=== PATIENT | female | born 1940 | race Caucasian/White ===

== ENCOUNTER → 2018-07-18 | Outpatient (CLI) | payer MEDICARE ==
[~2018-07-18] MED LIST: ASPI-515 PO; BENA40TA3 PO; CELE200C PO; DOCU-131 PO; ESCI10TA PO; GABA-827 PO; METH20TA5 PO; METO-99 PO; ONDA4TAB10 PO; OXYC5TAB3 PO; ROPI1TAB2 PO; SIMV20TA3 PO; TRAM50TA2 PO
[2018-07-18 12:54] LABS: BASOPHILS # (AUTO) 0.03 x10^3/uL (0-0.1); BASOPHILS % (AUTO) 0 % (0-1); EOSINOPHILS # (AUTO) 0.89 x10^3/uL (0-0.4); EOSINOPHILS % (AUTO) 11 % (1-7); HCT (SEDRATE) 42.5 % (34.6-47.8); LYMPHOCYTES # (AUTO) 2.25 x10^3/uL (1-3.4); LYMPHOCYTES % (AUTO) 28 % (22-44); MD NO; MEAN CORPUSCULAR HEMOGLOBIN 30.3 pg (27.0-34.8); MEAN CORPUSCULAR HGB CONC 33.3 g/dL (32.4-35.8); MEAN CORPUSCULAR VOLUME 91.2 fL (80-100); MEAN PLATELET VOLUME 7.7 fL (7.4-10.4); MONOCYTES # (AUTO) 0.42 x10^3/uL (0.2-0.8); MONOCYTES % (AUTO) 5 % (2-9); NEUTROPHILS # (AUTO) 4.37 x10^3/uL (1.8-6.8); NEUTROPHILS % (AUTO) 55 % (42-75); PLATELET COUNT 212 x10^3/uL (130-400); RED BLOOD COUNT 4.74 x10^6/uL (3.82-5.3); RED CELL DISTRIBUTION WIDTH 13.5 % (9.6-15.2)
[2018-07-18 12:56] LABS: MICROSCOPIC NOT IND
[2018-07-18 13:00] LABS: CULTURE INDICATED? NO
[2018-07-18 13:00] LABS: INTERNATIONAL NORMALIZED RATIO 0.99 (0.93-1.1); PROTHROMBIN TIME 10.2 Seconds (9.6-11.5)
[2018-07-18 13:02] LABS: ANION GAP 9 mmol/L (5-15); CALCIUM 8.9 mg/dL (8.5-10.1); CHLORIDE 100 mmol/L (98-107)
[2018-07-18 13:06] LABS: HEMOGLOBIN A1C 5.9 % (4.2-6.3)
[2018-07-18 13:10] LABS: ALANINE AMINOTRANSFERASE 16 U/L (12-78); ALBUMIN 3.8 g/dL (3.4-5.0); ALKALINE PHOSPHATASE 83 U/L (45-117); BILIRUBIN,TOTAL 0.6 mg/dL (0.2-1.0); CREATININE 0.96 mg/dL (0.55-1.02); TOTAL PROTEIN 7.8 g/dL (6.4-8.2)
== END | disposition home or self-care (01) ==
LOC: STAR 11:06
PROVIDERS: ATTEND Orthopaedic Surgery
DX: Z01.818 Encounter for other preprocedural examination (principal); T84.84XS Pain due to internal orthopedic prosthetic devices, implants and grafts, sequela
CPT/HCPCS: 36415; 80053; 81003; 83036; 85025; 85610; 85651; 85730; 86140; 87081; 87806; 93005; G0475

== ENCOUNTER 2018-07-23 10:22 | Inpatient (IN) | payer MEDICARE ==
[~2018-07-23] VITALS: Ht 168.9 cm; Wt 58.5 kg
[~2018-07-23 10:22] MED LIST changes: -ASPI-515 PO; -CELE200C PO; -DOCU-131 PO; +EPINEPHRINE 1 MG/ML, 1ML ONE; +KETOROLAC 60 MG/2 ML ONE; -ONDA4TAB10 PO; -OXYC5TAB3 PO; +ROPIvacaine/PF 0.2%, 20 ML ONE; +TRANEXAMIC ACID 100 MG/ML, 10ML ONE
[2018-07-23] MEDS ORDERED: LACTATED RINGERS 1,000 ML IV SCH (10:47)
[2018-07-23] MEDS ORDERED: ACETAMINOPHEN 500 MG TABLET PO ONE (11:00)
[2018-07-23] MEDS ORDERED: VANCOMYCIN PER PHARMACY MC PRN (11:00)
[2018-07-23] MEDS ORDERED: GABAPENTIN 300 MG CAPSULE PO ONE (11:00)
[2018-07-23 11:11] VITALS: BP 162/88
[2018-07-23] MEDS ORDERED: FENTANYL PF 250 MCG/5ML ONE (11:26)
[2018-07-23] MEDS ORDERED: VANCOMYCIN PMX 1GM/200ML 200 ML IV ONE (11:30)
[2018-07-23] MEDS ORDERED: TRANEXAMIC ACID 100 MG/ML, 10ML ONE (11:39)
[2018-07-23] MEDS ORDERED: ROPIvacaine/PF 0.2%, 20 ML ONE (11:39)
[2018-07-23] MEDS ORDERED: LIDOCAINE-MPF 2% ,5ML ONE (12:30)
[2018-07-23] MEDS ORDERED: LIDOCAINE 4%, 4 ML SYR/CANN TP ONE (12:30)
[2018-07-23] MEDS ORDERED: PROPOFOL 10 MG/ML, 20ML ONE (12:30)
[2018-07-23] MEDS ORDERED: SUCCINYLCHOLINE 20 MG/ML, 10ML ONE (12:30)
[2018-07-23] MEDS ORDERED: SUGAMMADEX 200 MG/2 ML IVPush ONE (12:30)
[2018-07-23] MEDS ORDERED: EPHEDRINE 50 MG/ML, 1ML ONE (12:30)
[2018-07-23] MEDS ORDERED: ROCURONIUM 10 MG/ML,10ML ONE (12:30)
[2018-07-23] MEDS ORDERED: ONDANSETRON ODT 8 MG PO PRN (13:30)
[2018-07-23] MEDS ORDERED: DIAZEPAM 5 MG/ML, 2ML IVPush PRN (13:30)
[2018-07-23] MEDS ORDERED: FENTANYL PF 100 MCG/2ML IV PRN (13:30)
[2018-07-23] MEDS ORDERED: OXYcodone 5 MG/5 ML ORAL.SOL UDC PO PRN (13:30)
[2018-07-23] MEDS ORDERED: MORPHINE SULFATE 4 MG/ML, 1ML IVPush PRN (13:30)
[2018-07-23] MEDS ORDERED: MEPERIDINE/PF 25MG/0.5ML IVPush PRN (13:30)
[2018-07-23] MEDS ORDERED: ACETAMINOPHEN 325 MG TABLET PO PRN (13:30)
[2018-07-23] MEDS ORDERED: ONDANSETRON 2MG/ML, 2ML IV PRN ×2 (13:30→14:00)
[2018-07-23] MEDS ORDERED: PROCHLORPERAZINE 5 MG/ML, 2ML IM PRN (13:30)
[2018-07-23 13:42] LABS: CELLS COUNTED 16
[2018-07-23] MEDS ORDERED: TRANEXAMIC ACID 1,000 MG in SODIUM CHLORIDE 0.9% 100 ML IVPB ONE (14:00)
[2018-07-23] MEDS ORDERED: SENNA/DOCUSATE TABLET PO PRN (14:00)
[2018-07-23] MEDS ORDERED: DIPHENHYDRAMINE 50 MG CAPSULE PO PRN (14:00)
[2018-07-23] MEDS ORDERED: ONDANSETRON 4 MG TABLET PO PRN (14:00)
[2018-07-23] MEDS ORDERED: HYDROmorphone 1 MG/ML, 1ML IV PRN (14:00)
[2018-07-23] MEDS ORDERED: ALUMINUM/MAG/SIMETHICONE 30 ML UDC PO PRN (14:00)
[2018-07-23] MEDS ORDERED: PROMETHAZINE 12.5 MG SUPP PR PRN (14:00)
[2018-07-23] MEDS ORDERED: MAGNESIUM HYDROXIDE 8%, 30ML UDC PO PRN (14:00)
[2018-07-23] MEDS ORDERED: PROMETHAZINE 25 MG/ML, 1ML IM PRN (14:00)
[2018-07-23] MEDS ORDERED: ACETAMINOPHEN 650 MG/20.3 ML UDC PO PRN (14:00)
[2018-07-23] MEDS ORDERED: OXYcodone IR 5MG TABLET PO PRN (14:00)
[2018-07-23] MEDS ORDERED: FENTANYL PF 100 MCG/2ML ONE (14:10)
[2018-07-23] MEDS ORDERED: OXYcodone 5 MG/5 ML ORAL.SOL UDC ONE ×2 (14:10→14:46)
[2018-07-23] MEDS ORDERED: ACETAMINOPHEN 650 MG/20.3 ML UDC ONE (14:10)
[2018-07-23] MEDS ORDERED: HYDROmorphone 2 MG/ML, 1ML ONE (14:23)
[2018-07-23] MEDS: HYDROmorphone 1 MG/ML, 1ML IV PRN ×3 (14:31→15:20)
[2018-07-23] MEDS ORDERED: ONDANSETRON 2MG/ML, 2ML ONE (15:18)
[2018-07-23 16:00] VITALS: BP 132/70
[2018-07-23] MEDS: ASPIRIN 81 MG TABLET EC PO SCH (17:30)
[2018-07-23] MEDS: D5%-0.45NACL+KCL 20MEQ 1,000 ML IV SCH (17:30)
[2018-07-23 20:30] VITALS: BP 100/55
[2018-07-23] MEDS: ROPINIROLE 1MG TABLET PO SCH (20:59)
[2018-07-23] MEDS: CEFAZOLIN PMX 1GM/50ML 50 ML IVPB SCH (20:59)
[2018-07-23] MEDS: DOCUSATE 100 MG CAPSULE PO SCH (20:59)
[2018-07-23] MEDS ORDERED: SIMVASTATIN 20 MG TABLET PO SCH (21:00)
[2018-07-24 00:05] VITALS: BP 117/68
[2018-07-24] MEDS: GABAPENTIN 400 MG CAPSULE PO SCH ×2 (00:22→10:14)
[2018-07-24 04:05] VITALS: BP 108/61
[2018-07-24] MEDS: ASPIRIN 81 MG TABLET EC PO SCH (04:57)
[2018-07-24] MEDS ORDERED: CEFAZOLIN PMX 1GM/50ML 50 ML ONE (04:59)
[2018-07-24] MEDS: D5%-0.45NACL+KCL 20MEQ 1,000 ML IV SCH (05:00)
[2018-07-24] MEDS: CEFAZOLIN PMX 1GM/50ML 50 ML IVPB SCH (05:00)
[2018-07-24] MEDS ORDERED: DEXAMETHASONE 4 MG/ML, 1ML IVPush SCH (06:00)
[2018-07-24 07:30] VITALS: BP 114/68
[2018-07-24] MEDS ORDERED: ASPI-515 PO (08:14)
[2018-07-24] MEDS ORDERED: ONDA4TAB10 PO (08:15)
[2018-07-24] MEDS ORDERED: DOCU-131 PO (08:16)
[2018-07-24] MEDS ORDERED: CELE200C PO (08:17)
[2018-07-24] MEDS ORDERED: TRAM50TA2 PO (08:18)
[2018-07-24] MEDS ORDERED: OXYC5TAB3 PO (08:19)
[2018-07-24] MEDS ORDERED: KETOROLAC 30 MG/1 ML ONE (08:45)
[2018-07-24] MEDS ORDERED: BENAZEPRIL 20 MG TABLET PO SCH (09:00)
[2018-07-24] MEDS ORDERED: METOPROLOL TARTRATE 100 MG TABLET PO SCH (09:00)
[2018-07-24] MEDS ORDERED: CITALOPRAM 20 MG TABLET PO SCH (09:00)
[2018-07-24 10:02] VITALS: BP 120/63
[2018-07-24] MEDS: ROPINIROLE 1MG TABLET PO SCH (10:14)
[2018-07-24] MEDS: DOCUSATE 100 MG CAPSULE PO SCH (10:15)
[2018-07-24] MEDS ORDERED: GABAPENTIN 400 MG CAPSULE PO SCH (12:00)
[2018-07-24 12:52] VITALS: BP 145/75
[2018-07-24] MEDS ORDERED: KETOROLAC 30 MG/1 ML IV SCH (14:00)
== END 2018-07-24 13:47 | disposition home or self-care (01) | DRG 466 ==
LOC: ORIP 10:22 → 4NOR 16:00 → DCLOUNGE 07-24 13:10
PROVIDERS: ADMIT Orthopaedic Surgery; ATTEND Orthopaedic Surgery
PROC: 0SP90JZ Removal of Synthetic Substitute from Right Hip Joint, Open Approach (ICD-10-PCS; 2018-07-23)
PROC: 0SR901Z Replacement of Right Hip Joint with Metal Synthetic Substitute, Open Approach (ICD-10-PCS; principal; 2018-07-23 12:30)
DX: T84.090A Other mechanical complication of internal right hip prosthesis, initial encounter (principal); J96.01 Acute respiratory failure with hypoxia; Y79.2 Prosthetic and other implants, materials and accessory orthopedic devices associated with adverse incidents; Z96.649 Presence of unspecified artificial hip joint; J44.9 Chronic obstructive pulmonary disease, unspecified; I10 Essential (primary) hypertension; G47.30 Sleep apnea, unspecified; Z88.8 Allergy status to other drugs, medicaments and biological substances; I25.2 Old myocardial infarction; Z95.5 Presence of coronary angioplasty implant and graft; Z99.81 Dependence on supplemental oxygen
CPT/HCPCS: 36415; 85014; 85018; 86850; 86900; 89051; C1713; G0378; J0171; J0690; J1100; J1170; J1885; J2405; J2704; J2795; J3010; J3370; J3490; C1776; J0330; J3480; J7120

== ENCOUNTER 2018-11-09 07:01 | Inpatient (IN) | payer MEDICARE ==
[~2018-11-09] VITALS: Ht 167.6 cm; Wt 54.4 kg
[~2018-11-09 07:01] MED LIST changes: +ASPI-515 PO; +CELE200C PO; +DOCU-131 PO; -EPINEPHRINE 1 MG/ML, 1ML ONE; +HYDR-3343 PO; -KETOROLAC 60 MG/2 ML ONE; +METO-95 PO; +ONDA4TAB10 PO; +OXYC5TAB3 PO; -ROPIvacaine/PF 0.2%, 20 ML ONE; -TRANEXAMIC ACID 100 MG/ML, 10ML ONE
[2018-11-09] MEDS ORDERED: VANCOMYCIN PER PHARMACY MC STA (07:29)
[2018-11-09] MEDS ORDERED: LACTATED RINGERS 1,000 ML IV SCH (07:35)
[2018-11-09] MEDS ORDERED: ACETAMINOPHEN 500 MG TABLET PO ONE (08:00)
[2018-11-09] MEDS ORDERED: GABAPENTIN 300 MG CAPSULE PO ONE (08:00)
[2018-11-09] MEDS ORDERED: ROPIvacaine/PF 0.2%, 20 ML ONE (08:30)
[2018-11-09] MEDS ORDERED: VANCOMYCIN PMX 1GM/200ML 200 ML IV ONE (08:30)
[2018-11-09] MEDS ORDERED: KETOROLAC 60 MG/2 ML ONE (08:30)
[2018-11-09] MEDS ORDERED: TRANEXAMIC ACID 100 MG/ML, 10ML ONE ×7 (08:30→09:52)
[2018-11-09] MEDS ORDERED: EPINEPHRINE 1 MG/ML, 1ML ONE (08:31)
[2018-11-09 08:33] VITALS: BP 125/79
[2018-11-09] MEDS ORDERED: FENTANYL PF 100 MCG/2ML ONE ×2 (08:43→10:54)
[2018-11-09] MEDS ORDERED: MIDAZOLAM 1 MG/ML, 2ML ONE (08:43)
[2018-11-09] MEDS ORDERED: METO-99 PO (08:46)
[2018-11-09] MEDS ORDERED: TRAM50TA2 PO (08:54)
[2018-11-09] MEDS ORDERED: METOCLOPRAMIDE 5 MG/ML, 2ML IV PRN (09:00)
[2018-11-09] MEDS ORDERED: OXYcodone 5 MG/5 ML ORAL.SOL UDC PO PRN (09:00)
[2018-11-09] MEDS ORDERED: MEPERIDINE/PF 25MG/0.5ML IVPush PRN (09:00)
[2018-11-09] MEDS ORDERED: CEFAZOLIN 1,000 MG ONE (09:12)
[2018-11-09] MEDS ORDERED: hydrALAzine 20 MG/ML, 1ML ONE ×2 (09:12→10:29)
[2018-11-09] MEDS ORDERED: PROPOFOL 10 MG/ML, 20ML ONE (09:12)
[2018-11-09] MEDS ORDERED: DEXAMETHASONE 4 MG/ML, 1ML ONE (09:12)
[2018-11-09] MEDS ORDERED: ROCURONIUM 10 MG/ML,10ML ONE (09:12)
[2018-11-09] MEDS ORDERED: ONDANSETRON 2MG/ML, 2ML ONE (09:12)
[2018-11-09] MEDS ORDERED: D5%-0.45% NACL 1,000 ML IV SCH (10:42)
[2018-11-09] MEDS: HYDROmorphone 2 MG/ML, 1ML IVPush PRN ×4 (10:50→11:45)
[2018-11-09] MEDS ORDERED: HYDROmorphone 2 MG/ML, 1ML ONE (10:50)
[2018-11-09] MEDS: FENTANYL PF 100 MCG/2ML IV PRN ×2 (10:55→11:10)
[2018-11-09] MEDS ORDERED: ONDANSETRON 4 MG TABLET PO PRN (11:00)
[2018-11-09] MEDS ORDERED: PROMETHAZINE 12.5 MG SUPP PR PRN (11:00)
[2018-11-09] MEDS ORDERED: LORazepam 1MG TABLET PO PRN (11:00)
[2018-11-09] MEDS ORDERED: DIPHENHYDRAMINE 25 MG CAPSULE PO PRN (11:00)
[2018-11-09] MEDS ORDERED: ZOLPIDEM 5MG TABLET PO PRN (11:00)
[2018-11-09] MEDS ORDERED: hydrALAzine 20 MG/ML, 1ML IV PRN (11:00)
[2018-11-09] MEDS ORDERED: HYDROmorphone 1 MG/ML, 1ML IV PRN (11:00)
[2018-11-09] MEDS ORDERED: SCOPOLAMINE PATCH, 1.5MG PATCH.TD72 TD PRN (11:00)
[2018-11-09] MEDS ORDERED: SENNA/DOCUSATE TABLET PO PRN (11:00)
[2018-11-09] MEDS ORDERED: ACETAMINOPHEN 650 MG/20.3 ML UDC PO PRN (11:00)
[2018-11-09] MEDS ORDERED: ALUMINUM/MAG/SIMETHICONE 30 ML UDC PO PRN (11:00)
[2018-11-09] MEDS ORDERED: BISACODYL 10 MG SUPP PR PRN (11:00)
[2018-11-09] MEDS ORDERED: HYDROcodone/APAP 5/325 TABLET PO PRN (11:00)
[2018-11-09] MEDS ORDERED: MAGNESIUM HYDROXIDE 8%, 30ML UDC PO PRN (11:00)
[2018-11-09] MEDS ORDERED: DIAZEPAM 5 MG TABLET PO PRN (11:00)
[2018-11-09] MEDS ORDERED: PROMETHAZINE 25 MG/ML, 1ML IM PRN (11:00)
[2018-11-09] MEDS ORDERED: ONDANSETRON 2MG/ML, 2ML IV PRN (11:00)
[2018-11-09] MEDS ORDERED: OXYcodone IR 5MG TABLET PO PRN (11:00)
[2018-11-09] MEDS ORDERED: TRANEXAMIC ACID 1,000 MG in SODIUM CHLORIDE 0.9% 100 ML IVPB ONE (12:00)
[2018-11-09] MEDS: GABAPENTIN 400 MG CAPSULE PO SCH ×2 (12:00→13:13)
[2018-11-09] MEDS ORDERED: HYDROmorphone 2 MG/ML, 1ML IV PRN (13:00)
[2018-11-09 14:25] VITALS: BP 89/47
[2018-11-09] MEDS: CEFAZOLIN PMX 2GM/50ML 50 ML IVPB SCH (17:05)
[2018-11-09] MEDS: ASPIRIN 81 MG TABLET EC PO SCH (17:05)
[2018-11-09 17:38] LABS: HEMOGLOBIN A1C 5.6 % (4.2-6.3)
[2018-11-09 18:43] VITALS: BP 102/60
[2018-11-09] MEDS: BENAZEPRIL 20 MG TABLET PO SCH (21:00)
[2018-11-09] MEDS ORDERED: SIMVASTATIN 20 MG TABLET PO SCH (21:00)
[2018-11-09] MEDS: METHYLPHENIDATE 10 MG TABLET PO SCH (21:00)
[2018-11-09] MEDS: ROPINIROLE 1MG TABLET PO SCH (21:57)
[2018-11-09] MEDS: DOCUSATE 100 MG CAPSULE PO SCH (21:57)
[2018-11-09] MEDS: GABAPENTIN 300 MG CAPSULE PO SCH (21:57)
[2018-11-09] MEDS: D5%-0.45% NACL 1,000 ML IV SCH (23:53)
[2018-11-10 00:05] VITALS: BP 96/60
[2018-11-10] MEDS: CEFAZOLIN PMX 2GM/50ML 50 ML IVPB SCH (01:37)
[2018-11-10 04:06] VITALS: BP 123/72
[2018-11-10] MEDS ORDERED: DEXAMETHASONE 4 MG/ML, 5ML ONE (05:51)
[2018-11-10] MEDS: ASPIRIN 81 MG TABLET EC PO SCH (05:57)
[2018-11-10] MEDS ORDERED: DEXAMETHASONE 4 MG/ML, 1ML IVPush SCH (06:00)
[2018-11-10 08:37] VITALS: BP 147/77
[2018-11-10] MEDS: DOCUSATE 100 MG CAPSULE PO SCH (08:38)
[2018-11-10] MEDS: GABAPENTIN 300 MG CAPSULE PO SCH (08:38)
[2018-11-10] MEDS: BENAZEPRIL 20 MG TABLET PO SCH (08:39)
[2018-11-10] MEDS: ROPINIROLE 1MG TABLET PO SCH (08:39)
[2018-11-10] MEDS: METHYLPHENIDATE 10 MG TABLET PO SCH (08:40)
[2018-11-10] MEDS ORDERED: MULTIVITAMINS/MINERALS TABLET PO SCH (09:00)
[2018-11-10] MEDS ORDERED: ESCITALOPRAM 10MG TABLET PO SCH (09:00)
[2018-11-10] MEDS ORDERED: METOPROLOL TARTRATE 100 MG TABLET PO SCH (09:00)
[2018-11-10] MEDS: D5%-0.45% NACL 1,000 ML IV SCH (09:40)
[2018-11-10] MEDS ORDERED: KETOROLAC 30 MG/1 ML IV SCH (11:00)
[2018-11-10] MEDS: GABAPENTIN 400 MG CAPSULE PO SCH (11:42)
[2018-11-10] MEDS ORDERED: ASPI-496 PO (13:12)
[2018-11-10] MEDS ORDERED: MELO7.5T5 PO (13:12)
[2018-11-10 14:00] VITALS: BP 142/73
== END 2018-11-10 14:45 | disposition home or self-care (01) | DRG 466 ==
LOC: ORIP 07:01 → 4NOR 12:15
PROVIDERS: ADMIT Orthopaedic Surgery; ATTEND Orthopaedic Surgery
PROC: 0SUA09Z Supplement Right Hip Joint, Acetabular Surface with Liner, Open Approach (ICD-10-PCS; 2018-11-09)
PROC: 0SRR0JZ Replacement of Right Hip Joint, Femoral Surface with Synthetic Substitute, Open Approach (ICD-10-PCS; 2018-11-09)
PROC: 0SPR0JZ Removal of Synthetic Substitute from Right Hip Joint, Femoral Surface, Open Approach (ICD-10-PCS; 2018-11-09)
PROC: 0SP909Z Removal of Liner from Right Hip Joint, Open Approach (ICD-10-PCS; principal; 2018-11-09 09:00)
DX: T84.020A Dislocation of internal right hip prosthesis, initial encounter (principal); E43 Unspecified severe protein-calorie malnutrition; Y79.2 Prosthetic and other implants, materials and accessory orthopedic devices associated with adverse incidents; Y92.89 Other specified places as the place of occurrence of the external cause; I10 Essential (primary) hypertension; I25.2 Old myocardial infarction; F17.210 Nicotine dependence, cigarettes, uncomplicated; Z86.73 Personal history of transient ischemic attack (TIA), and cerebral infarction without residual deficits; Z88.5 Allergy status to narcotic agent; G47.419 Narcolepsy without cataplexy
CPT/HCPCS: 36415; 72170; 83036; 85014; 85018; 86850; 86900; 87806; G0378; J0171; J0690; J1100; J1170; J1885; J2250; J2405; J2704; J2795; J3010; J3370; C1776; G0475; J0360; J7120

== ENCOUNTER 2019-01-17 17:18 | Inpatient (IN) | payer MEDICARE ==
[~2019-01-17] VITALS: Ht 167.6 cm; Wt 58.4 kg
[~2019-01-17 17:18] MED LIST changes: +ASPI-496 PO; +MELO7.5T5 PO
--- NOTE | 2019-01-17 17:20 | NUR ---
78 YR OLD FEMALE ARRIVED VIA EMS, PER REPORT, PT LETHARGIC AND HALLICUNATING PER FAMILY. PT RECENTLY DC'D FROM [place] WITH DX OF PNEUMONIA. PT WAS FOUND TO HAVE A TEMP OF 102.9. RECEIVED 500MG TYLENOL. RA SAT 78%, PT WAS PLACED ON 3-4L NC WITH SATS INC TO 98%. 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 PT DROWSY, AROUSES TO NAME. PT PLACED ON MONITORS, AUTO BP AND PULSE OX.
--- NOTE | 2019-01-17 17:31 | NUR ---
DR KIM AT BEDSIDE TO EVAL PT
[2019-01-17] MEDS ORDERED: PIPERACILLIN/TAZO/PMX 3.375GM 50 ML ONE (17:57)
[2019-01-17] MEDS ORDERED: VANCOMYCIN 1,100 MG in SODIUM CHLORIDE 0.9% 250 ML IV ONE (18:00)
[2019-01-17] MEDS ORDERED: PIPERACILLIN/TAZO/PMX 3.375GM 50 ML IVPB ONE (18:00)
[2019-01-17] MEDS ORDERED: SODIUM CHLORIDE 0.9% 1,000ML IVBOLUS ONE (18:00)
[2019-01-17] MEDS ORDERED: VANCOMYCIN PER PHARMACY IV ONE (18:00)
[2019-01-17 18:07] LABS: BASOPHILS # (AUTO) 0.07 x10^3/uL (0-0.1); BASOPHILS % (AUTO) 0 % (0-1); EOSINOPHILS # (AUTO) 0.07 x10^3/uL (0-0.4); EOSINOPHILS % (AUTO) 0 % (1-7); LYMPHOCYTES % (AUTO) 4 % (22-44); MD NO; MEAN CORPUSCULAR HEMOGLOBIN 30.6 pg (27.0-34.8); MEAN CORPUSCULAR HGB CONC 33.6 g/dL (32.4-35.8); MEAN CORPUSCULAR VOLUME 90.9 fL (80-100); MEAN PLATELET VOLUME 6.8 fL (7.4-10.4); MONOCYTES # (AUTO) 0.53 x10^3/uL (0.2-0.8); MONOCYTES % (AUTO) 3 % (2-9); NEUTROPHILS # (AUTO) 16.58 x10^3/uL (1.8-6.8); NEUTROPHILS % (AUTO) 92 % (42-75); PLATELET COUNT 195 x10^3/uL (130-400); RED BLOOD COUNT 3.52 x10^6/uL (3.82-5.3); RED CELL DISTRIBUTION WIDTH 15.9 % (9.6-15.2)
[2019-01-17 18:16] LABS: INTERNATIONAL NORMALIZED RATIO 1.03 (0.93-1.1); PROTHROMBIN TIME 10.8 Seconds (9.6-11.5)
[2019-01-17 18:19] LABS: ALBUMIN 2.9 g/dL (3.4-5.0); ANION GAP 6 mmol/L (5-15); CALCIUM 7.9 mg/dL (8.5-10.1); CHLORIDE 105 mmol/L (98-107)
[2019-01-17 18:24] LABS: ALANINE AMINOTRANSFERASE 19 U/L (12-78); ALKALINE PHOSPHATASE 69 U/L (45-117); BILIRUBIN,TOTAL 0.7 mg/dL (0.2-1.0); CREATININE 0.67 mg/dL (0.55-1.02); TOTAL PROTEIN 6.3 g/dL (6.4-8.2); TROPONIN I < 0.015 ng/mL (0.000-0.045)
--- NOTE | 2019-01-17 18:24 | NUR ---
IV ABX STARTED, BLOOD CULTURES X2 IN LAB, PINK [place] IN PLACE. NS INFUSING WITHOUT REDNESS/SWELLING. CONT ST PER MONITOR. CONT TO MONITOR
[2019-01-17 18:39] LABS: MICROSCOPIC NOT IND
[2019-01-17 18:43] LABS: CULTURE INDICATED? NO
--- NOTE | 2019-01-17 19:00 | NUR ---
REPORT TO JARON WORTHINGTON.
--- NOTE | 2019-01-17 19:01 | NUR ---
BEDSIDE REPORT RECEIVED FROM ELIN HUSSEIN. ASSUMED CARE OF PT. PT SLEEPING ON GURNEY BUT AROUSES TO VERBAL STIMULI. FAMILY AT BEDSIDE. PT TO CT OF CHEST
[2019-01-17] MEDS ORDERED: OMNIPAQUE 350 MG/ML, 100ML BOTTLE ONE (19:18)
--- NOTE | 2019-01-17 20:04 | NUR ---
PT RESTING ON GURNEY, SLEEPING, AROUSES TO VERBAL STIMULI. VITALS STABLE. FAMILY AT BEDSIDE. AWAITING BED FOR PT. WILL CONTINUE TO MONTIOR. VANCO INFUSING AT THIS TIME.
--- NOTE | 2019-01-17 20:16 | NUR ---
REPORT TO ETHAN WORTHINGTON FOR ROOM [phone]
[2019-01-17] MEDS ORDERED: BISACODYL 10 MG SUPP PR PRN (21:00)
[2019-01-17] MEDS ORDERED: ONDANSETRON ODT 4 MG PO PRN (21:00)
[2019-01-17] MEDS ORDERED: ACETAMINOPHEN 325 MG TABLET PO PRN (21:00)
[2019-01-17] MEDS ORDERED: DIPHENHYDRAMINE 25 MG CAPSULE PO PRN (21:00)
[2019-01-17] MEDS ORDERED: VANCOMYCIN PER PHARMACY MC PRN (21:00)
[2019-01-17 21:02] VITALS: BP 108/63
[2019-01-17] MEDS ORDERED: PHARMACOKINETIC CONSULTATION MC ONE (21:30)
[2019-01-17] MEDS ORDERED: PHARMACOKINETIC MONITORING MC PRN (21:30)
[2019-01-17] MEDS: ROPINIROLE 1MG TABLET PO SCH (23:00)
[2019-01-17] MEDS ORDERED: METOPROLOL TARTRATE 100 MG TABLET PO PRN (23:00)
[2019-01-17] MEDS ORDERED: SODIUM CHLORIDE 0.9%, 500ML IVBOLUS ONE (23:00)
[2019-01-17] MEDS ORDERED: ROPINIROLE 0.5MG TABLET ONE (23:58)
[2019-01-18] MEDS: NICOTINE 21 MG/24 HR PATCH.TD24 TD SCH ×2 (00:02→23:20)
[2019-01-18] MEDS: GABAPENTIN 400 MG CAPSULE PO SCH ×3 (00:02→20:28)
[2019-01-18] MEDS: ASPIRIN 81 MG TABLET EC PO SCH ×3 (00:03→20:29)
[2019-01-18] MEDS: SIMVASTATIN 20 MG TABLET PO SCH ×2 (00:03→20:29)
[2019-01-18] MEDS: ENOXAPARIN 40 MG/0.4 ML SQ SCH ×2 (00:04→20:38)
[2019-01-18 00:47] VITALS: BP 137/82
[2019-01-18] MEDS: BENAZEPRIL 20 MG TABLET PO SCH ×3 (00:47→20:29)
[2019-01-18 02:00] VITALS: BP 133/72
[2019-01-18] MEDS: SODIUM CHLORIDE 0.9% 1,000 ML IV SCH ×3 (02:55→19:41)
[2019-01-18] MEDS: PIPERACILLIN/TAZO/PMX 3.375GM 50 ML IV SCH ×4 (02:58→21:24)
[2019-01-18 06:19] LABS: BASOPHILS # (AUTO) 0.03 x10^3/uL (0-0.1); BASOPHILS % (AUTO) 0 % (0-1); EOSINOPHILS # (AUTO) 0.09 x10^3/uL (0-0.4); EOSINOPHILS % (AUTO) 1 % (1-7); LYMPHOCYTES # (AUTO) 1.31 x10^3/uL (1-3.4); LYMPHOCYTES % (AUTO) 10 % (22-44); MD NO; MEAN CORPUSCULAR HEMOGLOBIN 29.9 pg (27.0-34.8); MEAN CORPUSCULAR HGB CONC 32.8 g/dL (32.4-35.8); MEAN CORPUSCULAR VOLUME 91.3 fL (80-100); MEAN PLATELET VOLUME 6.9 fL (7.4-10.4); MONOCYTES # (AUTO) 0.57 x10^3/uL (0.2-0.8); MONOCYTES % (AUTO) 4 % (2-9); NEUTROPHILS # (AUTO) 11.17 x10^3/uL (1.8-6.8); NEUTROPHILS % (AUTO) 85 % (42-75); PLATELET COUNT 171 x10^3/uL (130-400); RED BLOOD COUNT 3.39 x10^6/uL (3.82-5.3); RED CELL DISTRIBUTION WIDTH 16.5 % (9.6-15.2)
[2019-01-18 06:30] LABS: CALCIUM 8.3 mg/dL (8.5-10.1); CHLORIDE 108 mmol/L (98-107)
[2019-01-18 06:45] LABS: ANION GAP 4 mmol/L (5-15); CREATININE 0.74 mg/dL (0.55-1.02)
[2019-01-18 07:10] VITALS: BP 149/80
[2019-01-18] MEDS: METHYLPHENIDATE 5 MG TABLET PO SCH (09:10)
[2019-01-18] MEDS: ROPINIROLE 1MG TABLET PO SCH ×2 (09:16→20:28)
[2019-01-18] MEDS: ESCITALOPRAM 10MG TABLET PO SCH (09:17)
[2019-01-18 15:20] VITALS: BP 153/78
[2019-01-18 18:59] VITALS: BP 164/90
[2019-01-18] MEDS: VANCOMYCIN PMX 1GM/200ML 200 ML IV SCH (19:41)
[2019-01-18 20:27] VITALS: BP 153/78
[2019-01-19 00:25] VITALS: BP 155/76
[2019-01-19] MEDS: PIPERACILLIN/TAZO/PMX 3.375GM 50 ML IV SCH ×4 (03:08→22:26)
[2019-01-19] MEDS: SODIUM CHLORIDE 0.9% 1,000 ML IV SCH ×2 (05:14→13:08)
[2019-01-19 05:46] LABS: BASOPHILS # (AUTO) 0.03 x10^3/uL (0-0.1); BASOPHILS % (AUTO) 0 % (0-1); EOSINOPHILS # (AUTO) 0.01 x10^3/uL (0-0.4); EOSINOPHILS % (AUTO) 0 % (1-7); LYMPHOCYTES # (AUTO) 0.93 x10^3/uL (1-3.4); LYMPHOCYTES % (AUTO) 10 % (22-44); MD NO; MEAN CORPUSCULAR HEMOGLOBIN 29.3 pg (27.0-34.8); MEAN CORPUSCULAR HGB CONC 32.3 g/dL (32.4-35.8); MEAN CORPUSCULAR VOLUME 90.9 fL (80-100); MEAN PLATELET VOLUME 7.3 fL (7.4-10.4); MONOCYTES # (AUTO) 0.25 x10^3/uL (0.2-0.8); MONOCYTES % (AUTO) 3 % (2-9); NEUTROPHILS # (AUTO) 7.88 x10^3/uL (1.8-6.8); NEUTROPHILS % (AUTO) 87 % (42-75); PLATELET COUNT 149 x10^3/uL (130-400); RED BLOOD COUNT 3.02 x10^6/uL (3.82-5.3); RED CELL DISTRIBUTION WIDTH 16.3 % (9.6-15.2)
[2019-01-19 05:53] LABS: ANION GAP 4 mmol/L (5-15); CALCIUM 8.1 mg/dL (8.5-10.1); CHLORIDE 107 mmol/L (98-107)
[2019-01-19 05:54] LABS: CREATININE 0.78 mg/dL (0.55-1.02)
[2019-01-19 08:30] VITALS: BP 112/68
[2019-01-19] MEDS: ROPINIROLE 1MG TABLET PO SCH ×2 (09:08→21:12)
[2019-01-19] MEDS: GABAPENTIN 400 MG CAPSULE PO SCH ×2 (09:08→21:13)
[2019-01-19] MEDS: ASPIRIN 81 MG TABLET EC PO SCH ×2 (09:08→21:13)
[2019-01-19] MEDS: METHYLPHENIDATE 5 MG TABLET PO SCH (09:08)
[2019-01-19] MEDS: ESCITALOPRAM 10MG TABLET PO SCH (09:09)
[2019-01-19] MEDS: BENAZEPRIL 20 MG TABLET PO SCH ×2 (09:09→21:13)
[2019-01-19] MEDS ORDERED: methylPREDNISolone SOD SUCC 125 MG/2 ML IVPush ONE (12:00)
[2019-01-19 12:50] VITALS: BP 165/81
[2019-01-19] MEDS: SIMVASTATIN 20 MG TABLET PO SCH (21:12)
[2019-01-19] MEDS: ENOXAPARIN 40 MG/0.4 ML SQ SCH (21:13)
[2019-01-19] MEDS: VANCOMYCIN PMX 1GM/200ML 200 ML IV SCH (21:13)
[2019-01-19 21:15] VITALS: BP 189/93
[2019-01-19 22:25] VITALS: BP 186/92
[2019-01-19] MEDS ORDERED: hydrALAzine 20 MG/ML, 1ML ONE (22:43)
[2019-01-19] MEDS ORDERED: hydrALAzine 20 MG/ML, 1ML IV PRN (23:00)
[2019-01-19 23:25] VITALS: BP 145/71
[2019-01-19] MEDS: NICOTINE 21 MG/24 HR PATCH.TD24 TD SCH (23:55)
[2019-01-20 01:06] VITALS: BP 142/78
[2019-01-20] MEDS: PIPERACILLIN/TAZO/PMX 3.375GM 50 ML IV SCH ×2 (03:42→09:49)
[2019-01-20 08:03] VITALS: BP 132/73
[2019-01-20] MEDS: GABAPENTIN 400 MG CAPSULE PO SCH (08:26)
[2019-01-20] MEDS: ASPIRIN 81 MG TABLET EC PO SCH (08:26)
[2019-01-20] MEDS: ROPINIROLE 1MG TABLET PO SCH (08:27)
[2019-01-20] MEDS: METHYLPHENIDATE 5 MG TABLET PO SCH (08:27)
[2019-01-20] MEDS: BENAZEPRIL 20 MG TABLET PO SCH (08:27)
[2019-01-20] MEDS: ESCITALOPRAM 10MG TABLET PO SCH (08:27)
[2019-01-20] MEDS ORDERED: AZIT500T PO (10:58)
[2019-01-20] MEDS ORDERED: CEFD300C37 PO (10:58)
[2019-01-20] MEDS ORDERED: FLUT1DIS3 INH (10:58)
[2019-01-20] MEDS ORDERED: NICO-487 TD (10:58)
[2019-01-20] MEDS ORDERED: PRED20TA PO (10:58)
[2019-01-20] MEDS ORDERED: TIOT18CA INH (10:58)
[2019-01-20] MEDS ORDERED: IPRA3AMP30 INH (11:02)
[2019-01-20] MEDS ORDERED: TRAM50TA2 PO (11:13)
[2019-01-20] MEDS ORDERED: METO-95 PO (11:13)
[2019-01-20 11:34] VITALS: BP 168/88
== END 2019-01-20 14:22 | disposition home health service (06) | DRG 871 ==
LOC: ED 19:45 → EDIP 20:25 → 4EST 20:29
PROVIDERS: ADMIT Internal Medicine; ATTEND Internal Medicine
PROC: 0T9B70Z Drainage of Bladder with Drainage Device, Via Natural or Artificial Opening (ICD-10-PCS; principal; 2019-01-17)
DX: A41.9 Sepsis, unspecified organism (principal); J15.9 Unspecified bacterial pneumonia; J96.21 Acute and chronic respiratory failure with hypoxia; G93.41 Metabolic encephalopathy; J44.0 Chronic obstructive pulmonary disease with (acute) lower respiratory infection; J98.11 Atelectasis; J44.1 Chronic obstructive pulmonary disease with (acute) exacerbation; E78.5 Hyperlipidemia, unspecified; F17.200 Nicotine dependence, unspecified, uncomplicated; G47.419 Narcolepsy without cataplexy; I10 Essential (primary) hypertension; I25.10 Atherosclerotic heart disease of native coronary artery without angina pectoris; I73.9 Peripheral vascular disease, unspecified; M81.0 Age-related osteoporosis without current pathological fracture; Z80.3 Family history of malignant neoplasm of breast; Z82.3 Family history of stroke; Z82.49 Family history of ischemic heart disease and other diseases of the circulatory system; Z83.3 Family history of diabetes mellitus; Z86.73 Personal history of transient ischemic attack (TIA), and cerebral infarction without residual deficits; Z99.81 Dependence on supplemental oxygen; Z95.5 Presence of coronary angioplasty implant and graft; Z88.6 Allergy status to analgesic agent; Z98.1 Arthrodesis status; Z98.51 Tubal ligation status; Z71.6 Tobacco abuse counseling
CPT/HCPCS: 36415; 36600; 71045; 71260; 80048; 80053; 81003; 82803; 83605; 84145; 84443; 84484; 85025; 85610; 87040; 93005; 96365; G0378; J1650; J2543; J3370; Q9967; J0360; J2930; J7030; J7040; J7050; J7512